=== PATIENT | female | born 1965 | race Caucasian/White ===

== ENCOUNTER 2017-10-09 13:58 | Emergency (ER) | payer BC, OTHER | END 2017-10-09 14:28 | disposition left against medical advice (07) | LOC: DL.ED 13:58 | DX: Z53.21 Procedure and treatment not carried out due to patient leaving prior to being seen by health care provider (principal) ==

== ENCOUNTER 2021-08-13 10:54 | Emergency (ER) | payer BC ==
[2021-08-13 11:13] VITALS: BP 140/87; PULSE 88
--- NOTE | 2021-08-13 11:32 | EDM.PDOC ---
<Dot Rajan - Last Filed: 08/13/21 12:21> ED HPI GENERAL MEDICAL PROBLEM - General Chief Complaint: Genitourinary Problem Stated Complaint: FEMALE ISSUE Time Seen by Provider: 08/13/21 11:25 Source of Information: Reports: Patient History Limitations: Reports: No Limitations - History of Present Illness INITIAL COMMENTS - FREE TEXT/NARRATIVE: The patient reports onset of symptoms several days ago including vaginal itching and dysuria. She denies vaginal discharge or odor. She reports some increased frequency, no urgency. She denies fevers, chills, nausea or vomiting, abdominal pain, diarrhea or constipation. She denies new sexual partners or concern for STIs at this time. She denies recent antibiotic use. She denies other concerns or symptoms at this time. - Related Data Allergies Allergy/AdvReac Type Severity Reaction Status Date / Time animal, seasonal Allergy Mild Cannot Uncoded 08/13/21 11:10 Remember Home Meds: Home Meds Levothyroxine Sodium 88 mcg PO ACBREAKFAST 08/13/21 [History] Past Medical History - Past Health History Medical/Surgical History: Denies Medical/Surgical History HEENT History: Reports: None Cardiovascular History: Reports: None Respiratory History: Reports: None Gastrointestinal History: Reports: None Genitourinary History: Reports: None PRODUCT SAFETY CONSULTANT History: Reports: None Musculoskeletal History: Reports: None Neurological History: Reports: None Psychiatric History: Reports: None Endocrine/Metabolic History: Reports: Hyperthyroidism Hematologic History: Reports: None Immunologic History: Reports: None Oncologic (Cancer) History: Reports: None Dermatologic History: Reports: None - Infectious Disease History Infectious Disease History: Reports: None - Past Surgical History Head Surgeries/Procedures: Reports: None Social & Family History - Family History Family Medical History: Unobtainable - Tobacco Use Tobacco Use Status *Q: Current Some Day Tobacco User Years of Tobacco use: 30 Packs/Tins Daily: 1 - Caffeine Use Caffeine Use: Reports: Coffee - Recreational Drug Use Recreational Drug Use: No - Living Situation & Occupation Living situation: Reports: , with Spouse, with Family Occupation: Employed ED ROS GENERAL - Review of Systems Review Of Systems: See Below Constitutional: Reports: No Symptoms. Denies: Fever, Chills, Malaise, Weakness HEENT: Reports: No Symptoms Respiratory: Reports: No Symptoms. Denies: Shortness of Breath, Wheezing, Cough Cardiovascular: Reports: No Symptoms. Denies: Chest Pain, Edema, Palpitations Endocrine: Reports: No Symptoms GI/Abdominal: Reports: No Symptoms. Denies: Abdominal Pain, Black Stool, Bloody Stool, Constipation, Diarrhea, Decreased Appetite, Nausea, Vomiting : Reports: Dysuria, Frequency. Denies: Flank Pain, Incontinence, Pain, Urgency Musculoskeletal: Reports: No Symptoms Skin: Reports: No Symptoms Neurological: Reports: No Symptoms Psychiatric: Reports: No Symptoms Hematologic/Lymphatic: Reports: No Symptoms Immunologic: Reports: No Symptoms ED EXAM, RENAL/ - Physical Exam Exam: See Below Exam Limited By: No Limitations General Appearance: Alert, WD/WN, No Apparent Distress Respiratory/Chest: No Respiratory Distress, Lungs Clear, Normal Breath Sounds, No Accessory Muscle Use, Chest Non-Tender Cardiovascular: Normal Peripheral Pulses, Regular Rate, Rhythm, No Edema, No Gallop, No JVD, No Murmur, No Rub GI/Abdominal: Normal Bowel Sounds, Soft, Non-Tender, No Organomegaly, No Distention, No Abnormal Bruit, No Mass (Female) Exam: Other (Evidence of irritation of vaginal tissue and labia majora. No rash.). No: Vaginal Bleeding, Vaginal Discharge Back Exam: Normal Inspection, Full Range of Motion, NT Extremities: Normal Inspection, Normal Range of Motion, Non-Tender, Normal Capillary Refill, No Pedal Edema Neurological: Alert, Oriented, Normal Cognition, Normal Gait, No Motor/Sensory Deficits Psychiatric: Normal Affect, Normal Mood Departure - Departure Time of Disposition: 12:25 Disposition: Home, Self-Care 01 Condition: Good Clinical Impression: Vaginal candidiasis - Discharge Information *PRESCRIPTION DRUG MONITORING PROGRAM REVIEWED*: Not Applicable *COPY OF PRESCRIPTION DRUG MONITORING REPORT IN PATIENT MELODIE: Not Applicable Instructions: Vaginal Yeast Infection, Adult Forms: ED Department Discharge Additional Instructions: You received a dose of fluconazole 150 mg by mouth for the yeast infections. If your symptoms persist, take a second tablet 72 hours later after the first dose. Your urine culture is still pending, you will be contacted if your results indicate an antibiotic is needed. Follow-up with your PCP within 7 days or sooner PRN. Return sooner if you develop new or worsening symptoms. Sepsis Event Note (ED) - Evaluation Sepsis Screening Result: No Definite Risk <Angel Chamorro - Last Filed: 08/13/21 12:30> Course - Vital Signs Last Recorded V/S: Last Vital Signs Temp 97.4 F 08/13/21 11:11 Pulse 88 08/13/21 11:11 Resp 16 08/13/21 11:11 BP 140/87 08/13/21 11:11 Pulse Ox 95 08/13/21 11:11 - Orders/Labs/Meds Orders: Active Orders 24 hr Category Date Time Status CULTURE URINE [RM] Stat Lab 08/13/21 12:00 Received Labs: Laboratory Tests 08/13/21 Range/Units 11:20 Urine Color Yellow (YELLOW) Urine Appearance Clear (CLEAR) Urine pH 6.0 (5.0-9.0) Ur Specific [place] >= 1.030 (1.005-1.030) Urine Protein Negative (NEGATIVE) Urine Glucose (UA) Negative (NEGATIVE) Urine Ketones Negative (NEGATIVE) Urine Occult Blood Small H (NEGATIVE) Urine Nitrite Negative (NEGATIVE) Urine Bilirubin Negative (NEGATIVE) Urine Urobilinogen 0.2 (0.2-1.0) mg/dL Ur Leukocyte Esterase Trace H (NEGATIVE) Urine RBC 0-5 (0-5) /HPF Urine WBC 0-5 (0-5/HPF) /HPF Ur Epithelial Cells Few (NOT SEEN) /HPF Urine Bacteria Few (0-FEW/HPF) /HPF Meds: Medications Discontinued Medications Generic Name Dose Route Start Last Admin Trade Name Markq PRN Reason Stop Dose Admin Fluconazole 150 mg 08/13/21 11:45 Fluconazole 100 Mg Tab PO DAILY WILLEM Fluconazole 150 mg 08/13/21 11:33 08/13/21 12:07 Fluconazole 100 Mg Tab PO 08/13/21 11:34 150 mg ONETIME ONE Administration - Re-Assessments/Exams Free Text/Narrative Re-Assessment/Exam: 08/13/21 12:30 I saw and evaluated the patient. Discussed with resident and agree with residents findings and plan as documented in the residents note. Sepsis Event Note (ED) - Focused Exam Vital Signs: Vital Signs Temp Pulse Resp BP Pulse Ox 08/13/21 11:11 97.4 F 88 16 140/87 95
[2021-08-13] MEDS ORDERED: Fluconazole 100 MG Tab PO ONE (11:33)
[2021-08-13] MEDS ORDERED: Fluconazole 100 MG Tab PO SCH (11:45)
== END 2021-08-13 12:31 | disposition home or self-care (01) ==
LOC: DL.ED 10:54
DX: B37.3 Candidiasis of vulva and vagina (principal); E03.9 Hypothyroidism, unspecified; Z91.09 Other allergy status, other than to drugs and biological substances; Z79.899 Other long term (current) drug therapy; Z72.0 Tobacco use
CPT/HCPCS: 81001; 87086; 99283; A9270

== ENCOUNTER 2024-02-04 22:40 | Emergency (ER) | payer BC, OTHER | END 2024-02-05 00:23 | disposition home or self-care (01) | LOC: DL.ED 22:40 → MERGE 22:40 → DL.ED 02-05 00:23 | DX: S52.572A Other intraarticular fracture of lower end of left radius, initial encounter for closed fracture (principal); E05.90 Thyrotoxicosis, unspecified without thyrotoxic crisis or storm; F17.210 Nicotine dependence, cigarettes, uncomplicated; Z79.899 Other long term (current) drug therapy; W18.39XA Other fall on same level, initial encounter; Y92.009 Unspecified place in unspecified non-institutional (private) residence as the place of occurrence of the external cause | CPT/HCPCS: 29125; 73110-LT; 99283; 99283-25 ==